=== PATIENT | female | born 1970 | race Caucasian/White ===

== ENCOUNTER 2019-07-20 10:26 | Outpatient (CLI) | payer BC, SELFPAY ==
[2019-07-20 11:44] LABS: TSH (W/Ref FT4) 6.62 uIU/mL (0.36-3.74)
[2019-07-20 12:13] LABS: FREE T4 0.74 ng/dL (0.76-1.46)
== END 2019-07-20 10:46 ==
PROVIDERS: PCP Nurse Practitioner Family; Visit Provider Nurse Practitioner Family
DX: N93.9 Abnormal uterine and vaginal bleeding, unspecified (principal)
CPT/HCPCS: 36415; 84439; 84443

== ENCOUNTER 2019-07-28 03:07 | Outpatient (CLI) | payer BC, SELFPAY ==
--- NOTE | 2019-07-28 13:03 | DI.US_ITS ---
EXAM: US PELVIS AND TRANSVAGINAL CLINICAL HISTORY: abnormal bleeding N93.9 TECHNIQUE: Ultrasound performed using standard protocol. Pelvic ultrasound was performed transabdo minally and transvaginally. COMPARISON: PELVIS TRANSVAG from 07/23/2016 FINDINGS: Please see the accompanying data sheet for measurements of the pelvic structures. Uterus is unremark able in appearance with a 6 millimeter thick homogeneous endometrial stripe. Small nabothian cysts a re noted. Right ovary has a normal follicular appearance. Left ovary is unremarkable except for a 6 -7 millimeter in diameter solid or complex lesion, not ideally visualized; this may be a collapsed cy st. No free fluid identified in the cul-de-sac. Limited scanning of the kidneys is unremarkable. IMPRESSION: Examination is unremarkable except for a presumed collapsed cyst of left ovary. Follow-up pelvic ult rasound may be obtained in 4-6 weeks to re-evaluate the left ovary.
== END 2019-07-28 03:27 ==
PROVIDERS: PCP Nurse Practitioner Family; Visit Provider Nurse Practitioner Family
DX: N83.292 Other ovarian cyst, left side; N93.9 Abnormal uterine and vaginal bleeding, unspecified
CPT/HCPCS: 76830; 76856

== ENCOUNTER 2019-08-04 14:57 | Outpatient (REF) | payer BC, SELFPAY ==
--- NOTE | 2019-08-04 14:45 | ENDOMET_PTH ---
PATIENT: Quin Jackson LOC: [facility] U#:[id number] AGE/SX: 49/F ROOM: RE08/04/[address]: Anshul Pascual MD : 1970 BED: DIS: 08/04/2019 SPEC #: [id number] RECD: 08/04/19 17:52 STATUS: TJ REQ #: [id number] LUCERO: 08/04/19 14:[address]: Anshul Pascual DEPT: Surgical Specimen RECD BY: Corazon Gaston ENTERED: 08/04/19 17:53 SP TYPE: Endomet OTHR DR: Lc Cade Tissues: 1 - ENDOMETRIUM BX/CURRETTE Procedures: GROSS AND MICRO LEVEL 4 Comments: [id number]
== END 2019-08-04 15:17 ==
LOC: NCHCN 14:57
PROVIDERS: PCP Nurse Practitioner Family; Visit Provider Obstetrics & Gynecology
DX: N85.8 Other specified noninflammatory disorders of uterus (principal); N93.9 Abnormal uterine and vaginal bleeding, unspecified
CPT/HCPCS: 88305

== ENCOUNTER 2025-01-09 15:38 | Outpatient (REF) | payer BC, SELFPAY ==
[2025-01-09 18:10] LABS: Bilirubin Negative (Negative); Blood Trace-intact (Negative); Clarity Clear (Clear); Glucose Negative (Negative); Ketones Negative (Negative); Leukocyte Esterase Negative (Negative); Nitrite Negative (Negative); Urobilinogen 0.2 mg/dL (Up to 0.2); pH 6.5 (5-8)
[2025-01-09 18:14] LABS: Bacteria Rare HPF (Negative); C & S Indicated? No; Casts Negative LPF (Negative); Crystals Negative HPF (Negative); Epithelial Cells Rare HPF (Negative); Mucus Negative (Negative); RBC 0-2 HPF (0-2); WBC Negative HPF (0-5)
== END 2025-01-09 15:39 | disposition home or self-care (01) ==
LOC: LBN 15:38
PROVIDERS: PCP Nurse Practitioner Family; Visit Provider Obstetrics & Gynecology
DX: R30.0 Dysuria (principal); Z12.4 Encounter for screening for malignant neoplasm of cervix
CPT/HCPCS: 88142; 81003; 81015; 87480; 87510; 87624; 87660